=== PATIENT | male | born 1990 | race Asian ===

== ENCOUNTER 2018-03-10 14:09 | Emergency (ER) | payer SELFPAY ==
[2018-03-10 14:23] VITALS: BP 134/79; PULSE 96; RESP 20; TEMP 36.9; O2SAT 98
--- NOTE | 2018-03-10 14:24 | DI.RAD.S_ITS ---
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 COMPARISON: None. FINDINGS: Bones: No fractures or dislocations. No suspicious bony lesions. Visualized ribs appear intact. Soft tissues: No suspicious soft tissue calcifications. IMPRESSION: No fracture. No osseous lesion. If symptoms and/or clinical suspicion for pathology persists, further assessment with repeat radiographs (7-10 days) or advanced imaging (e.g. CT, MRI or bone scan) may be helpful. Dictated by: Nicole Magaña MD, PhD on 03/10/2018 at 14:36 Approved by: Nicole Magaña MD, PhD on 03/10/2018 at 14:37
[2018-03-10] MEDS: KETOROLAC 60 MG/2 ML VIAL IM (15:32)
--- NOTE | 2018-03-10 15:35 | ED.UPPEXIN ---
HPI - Extremity Injury (Upper) <ADELA Worthy - Last Filed: 03/10/18 17:44> General Chief Complaint: Extremity Injury, Upper Stated Complaint: states right shoulder hurts Time Seen by Provider: 03/10/18 15:10 Source: patient Mode of arrival: ambulatory Limitations: no limitations History of Present Illness HPI narrative: Patient is a healthy single 27 year old marijuana smoker who presents after a fall onto his right shoulder at approximately 4:00 a.m. in the morning. He states he landed on his right shoulder with his arms of the year. He denies loss of consciousness, headache neck pain or back pain, stating that he landed entirely on his right shoulder. He states that it is aching pain 09/07. Has not taken anything for it. Worried about a fracture. No previous injuries to his right shoulder. Patient is left handed. Related Data Allergies Allergy/AdvReac Type Severity Reaction Status Date / Time No Known Drug Allergies Allergy Verified 03/10/18 14:25 Review of Systems <ADELA Worthy - Last Filed: 03/10/18 17:44> Review of Systems GENERAL: Denies chills, fatigue, malaise, fever, sweats. HEENT: Denies sinus pain, ear pain, sore throat, difficulty swallowing, dizziness. RESPIRATORY: Denies dyspnea, cough, wheezing, hemoptysis, sputum. CARDIOVASCULAR: Denies chest pain, palpitations, orthopnea, edema, GASTROINTESTINAL: Denies nausea, vomiting, abdominal pain, diarrhea, constipation, melena. : Denies dysuria, frequency, incontinence, hematuria, urinary retention. MUSCULOSKELETAL: See HPI SKIN: Denies rash, skin lesions, or other NEUROLOGIC: Denies weakness, headache, numbness, change in speech, confusion, seizures, incoordination. PSYCHIATRIC: No concerning psychosocial issues. 12 point review of systems is negative except for those stated above Exam <ADELA Worthy - Last Filed: 03/10/18 17:44> Narrative Exam Narrative: GENERAL: This is a well-nourished, well-developed patient, no acute distress HEAD: Atraumatic. Normocephalic. No temporal or scalp tenderness. EYES: Pupils equal round and reactive. Extraocular motions intact. No scleral icterus. No injection or drainage. ENT: Nose without bleeding, purulent drainage or septal hematoma. Throat without erythema, tonsillar hypertrophy or exudate. Uvula midline. Airway patent. NECK: Trachea midline. No JVD or lymphadenopathy. Supple, nontender, no meningeal signs. CARDIOVASCULAR: Regular rate and rhythm without murmurs, gallops, or rubs. RESPIRATORY: Clear to auscultation. Breath sounds equal bilaterally. No wheezes, rales, or rhonchi. GASTROINTESTINAL: Abdomen soft, non-tender, nondistended. No hepato-splenomegaly, or palpable masses. No guarding. EXTREMITIES: Generalized pain to palpation right shoulder. Patient is able to flex, extend adduct and abduct right arm. Positive radial pulses. Negative empty can test. BACK: Nontender without deformity or crepitance. No flank tenderness. NEURO: AOx3. SKIN: No rash or erythema. No erythema ecchymosis last chin abrasion noted right shoulder. Initial Vital Signs Initial Vital Signs: Vital Signs Temperature 98.4 F 03/10/18 14:23 Pulse Rate 96 H 03/10/18 14:23 Respiratory Rate 20 03/10/18 14:23 Blood Pressure 134/79 03/10/18 14:23 Pulse Oximetry 98 03/10/18 14:23 <Vivienne Nicole DO - Last Filed: 03/11/18 11:43> Initial Vital Signs Initial Vital Signs: Vital Signs Temperature 98.4 F 03/10/18 14:23 Pulse Rate 96 H 03/10/18 14:23 Respiratory Rate 20 03/10/18 14:23 Blood Pressure 134/79 03/10/18 14:23 Pulse Oximetry 98 03/10/18 14:23 Course <ADELA Worthy - Last Filed: 03/10/18 17:44> Orders Ordered: Discontinued Medications Ketorolac Tromethamine (Toradol) 60 mg IM NOW ONE Stop: 03/10/18 15:26 Last Admin: 03/10/18 15:32 Dose: 60 mg Vital Signs - 8 hr 03/10/18 14:23 Temperature 98.4 F Pulse Rate 96 H Respiratory Rate 20 Blood Pressure 134/79 Pulse Oximetry 98 <Vivienne Nicole DO - Last Filed: 03/11/18 11:43> Orders Ordered: Discontinued Medications Ketorolac Tromethamine (Toradol) 60 mg IM NOW ONE Stop: 03/10/18 15:26 Last Admin: 03/10/18 15:32 Dose: 60 mg Vital Signs - 8 hr 03/10/18 14:23 Temperature 98.4 F Pulse Rate 96 H Respiratory Rate 20 Blood Pressure 134/79 Pulse Oximetry 98 MDM - Extremity Injury (Upper) <ADELA Worthy - Last Filed: 03/10/18 17:44> Imaging Data shoulder xray: Radiologist's impression: [address] [address] XRay Report Signed Patient: Mannie Teague#: [id number] : 1990Acct:[id number] Age/Sex: 27 / MDate of Service: 03/10/18 Loc: ED Accession Number: [id number] Procedure: XR shoulder RT min 2V Ordering Provider: Love Martinez PROCEDURE: XR SHOULDER RT MIN 2V INDICATIONS: fall from window, 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 COMPARISON: None. FINDINGS: Bones: No fractures or dislocations. No suspicious bony lesions. Visualized ribs appear intact. Soft tissues: No suspicious soft tissue calcifications. IMPRESSION: No fracture. No osseous lesion. If symptoms and/or clinical suspicion for pathology persists, further assessment with repeat radiographs (7-10 days) or advanced imaging (e.g. CT, MRI or bone scan) may be helpful. Dictated by: Nicole Magaña MD, PhD on 03/10/2018 at 14:36 Approved by: Nicole Magaña MD, PhD on 03/10/2018 at 14:37 [facility] Narrative Medical decision making narrative: Patient is a healthy 27-year-old male who presents with a chief complaint of right shoulder pain. He has a negative x-ray and is neurovascularly intact. I encourage rest ice compression elevation as well as [id number] pain medications as needed and able. I urged him to follow up with primary care provider if worsening or no improvement as he may need further imaging physical therapy etc. No questions or concerns upon discharge. Discharge Plan Departure Patient Disposition: Home Clinical Impression: Acute pain of right shoulder Discharge Date/Time: 03/10/18 15:53 Interventions: ED Discharge Assessment Last Done: 03/10/18 15:53 Instructions: How to Use a Sling, How To Perform RICE (Rest, Ice, Compress, Elevate), DI for Shoulder Pain Activity Restrictions/Additional Instructions: Your x-ray came back with no fracture. Please follow-up with the primary care provider for worsening or no improvement. Please use rest ice compression elevation as well as [id number] pain medication as needed and able. Please do not take ibuprofen for 6-8 hours after your Toradol dose. Stand Alone Forms: Work Release Note <Vivienne Nicole DO - Last Filed: 03/11/18 11:43> Cosign ED Attending Cosignature Attestation: I was immediately available in the department for consultation. Documentation has been reviewed. I agree with assessment and plan.
--- NOTE | 2018-03-10 15:42 | ED_ITS ---
HPI - Extremity Injury (Upper) <ADELA Worthy - Last Filed: 03/10/18 17:44> General Chief Complaint: Extremity Injury, Upper Stated Complaint: states right shoulder hurts Time Seen by Provider: 03/10/18 15:10 Source: patient Mode of arrival: ambulatory Limitations: no limitations History of Present Illness HPI narrative: Patient is a healthy single 27 year old marijuana smoker who presents after a fall onto his right shoulder at approximately 4:00 a.m. in the morning. He states he landed on his right shoulder with his arms of the year. He denies loss of consciousness, headache neck pain or back pain, stating that he landed entirely on his right shoulder. He states that it is aching pain . Has not taken anything for it. Worried about a fracture. No previous injuries to his right shoulder. Patient is left handed. Related Data Allergies Allergy/AdvReac Type Severity Reaction Status Date / Time No Known Drug Allergies Allergy Verified 03/10/18 14:25 Review of Systems <ADELA Worthy - Last Filed: 03/10/18 17:44> Review of Systems GENERAL: Denies chills, fatigue, malaise, fever, sweats. HEENT: Denies sinus pain, ear pain, sore throat, difficulty swallowing, dizziness. RESPIRATORY: Denies dyspnea, cough, wheezing, hemoptysis, sputum. CARDIOVASCULAR: Denies chest pain, palpitations, orthopnea, edema, GASTROINTESTINAL: Denies nausea, vomiting, abdominal pain, diarrhea, constipation, melena. : Denies dysuria, frequency, incontinence, hematuria, urinary retention. MUSCULOSKELETAL: See HPI SKIN: Denies rash, skin lesions, or other NEUROLOGIC: Denies weakness, headache, numbness, change in speech, confusion, seizures, incoordination. PSYCHIATRIC: No concerning psychosocial issues. 12 point review of systems is negative except for those stated above Exam <ADELA Worthy - Last Filed: 03/10/18 17:44> Narrative Exam Narrative: GENERAL: This is a well-nourished, well-developed patient, no acute distress HEAD: Atraumatic. Normocephalic. No temporal or scalp tenderness. EYES: Pupils equal round and reactive. Extraocular motions intact. No scleral icterus. No injection or drainage. ENT: Nose without bleeding, purulent drainage or septal hematoma. Throat without erythema, tonsillar hypertrophy or exudate. Uvula midline. Airway patent. NECK: Trachea midline. No JVD or lymphadenopathy. Supple, nontender, no meningeal signs. CARDIOVASCULAR: Regular rate and rhythm without murmurs, gallops, or rubs. RESPIRATORY: Clear to auscultation. Breath sounds equal bilaterally. No wheezes , rales, or rhonchi. GASTROINTESTINAL: Abdomen soft, non-tender, nondistended. No hepato-splenomegaly , or palpable masses. No guarding. EXTREMITIES: Generalized pain to palpation right shoulder. Patient is able to flex, extend adduct and abduct right arm. Positive radial pulses. Negative empty can test. BACK: Nontender without deformity or crepitance. No flank tenderness. NEURO: AOx3. SKIN: No rash or erythema. No erythema ecchymosis last chin abrasion noted right shoulder. Initial Vital Signs Initial Vital Signs: Vital Signs Temperature 98.4 F 03/10/18 14:23 Pulse Rate 96 H 03/10/18 14:23 Respiratory Rate 20 03/10/18 14:23 Blood Pressure 134/79 03/10/18 14:23 Pulse Oximetry 98 03/10/18 14:23 <Vivienne Nicole DO - Last Filed: 03/11/18 11:43> Initial Vital Signs Initial Vital Signs: Vital Signs Temperature 98.4 F 03/10/18 14:23 Pulse Rate 96 H 03/10/18 14:23 Respiratory Rate 20 03/10/18 14:23 Blood Pressure 134/79 03/10/18 14:23 Pulse Oximetry 98 03/10/18 14:23 Course <ADELA Worthy - Last Filed: 03/10/18 17:44> Orders Ordered: Discontinued Medications Ketorolac Tromethamine (Toradol) 60 mg IM NOW ONE Stop: 03/10/18 15:26 Last Admin: 03/10/18 15:32 Dose: 60 mg Vital Signs - 8 hr 03/10/18 14:23 Temperature 98.4 F Pulse Rate 96 H Respiratory Rate 20 Blood Pressure 134/79 Pulse Oximetry 98 <Vivienne Nicole DO - Last Filed: 03/11/18 11:43> Orders Ordered: Discontinued Medications Ketorolac Tromethamine (Toradol) 60 mg IM NOW ONE Stop: 03/10/18 15:26 Last Admin: 03/10/18 15:32 Dose: 60 mg Vital Signs - 8 hr 03/10/18 14:23 Temperature 98.4 F Pulse Rate 96 H Respiratory Rate 20 Blood Pressure 134/79 Pulse Oximetry 98 MDM - Extremity Injury (Upper) <ADELA Worthy - Last Filed: 03/10/18 17:44> Imaging Data shoulder xray: Radiologist's impression: [address] [address] XRay Report Signed Patient: Mannie Teague#: [id number] : 1990Acct:[id number] Age/Sex: 27 / MDate of Service: 03/10/18 Loc: ED Accession Number: [id number] Procedure: XR shoulder RT min 2V Ordering Provider: Love Martinez PROCEDURE: XR SHOULDER RT MIN 2V INDICATIONS: fall from window, 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 COMPARISON: None. FINDINGS: Bones: No fractures or dislocations. No suspicious bony lesions. Visualized ribs appear intact. Soft tissues: No suspicious soft tissue calcifications. IMPRESSION: No fracture. No osseous lesion. If symptoms and/or clinical suspicion for pathology persists, further assessment with repeat radiographs (7-10 days) or advanced imaging (e.g. CT, MRI or bone scan) may be helpful. Dictated by: Nicole Magaña MD, PhD on 03/10/2018 at 14:36 Approved by: Nicole Magaña MD, PhD on 03/10/2018 at 14:37 [facility] Narrative Medical decision making narrative: Patient is a healthy 27-year-old male who presents with a chief complaint of right shoulder pain. He has a negative x- ray and is neurovascularly intact. I encourage rest ice compression elevation as well as [id number] pain medications as needed and able. I urged him to follow up with primary care provider if worsening or no improvement as he may need further imaging physical therapy etc. No questions or concerns upon discharge. Discharge Plan Departure Patient Disposition: Home Clinical Impression: Acute pain of right shoulder Discharge Date/Time: 03/10/18 15:53 Interventions: ED Discharge Assessment Last Done: 03/10/18 15:53 Instructions: How to Use a Sling, How To Perform RICE (Rest, Ice, Compress, Elevate), DI for Shoulder Pain Activity Restrictions/Additional Instructions: Your x-ray came back with no fracture. Please follow-up with the primary care provider for worsening or no improvement. Please use rest ice compression elevation as well as [id number] pain medication as needed and able. Please do not take ibuprofen for 6-8 hours after your Toradol dose. Stand Alone Forms: Work Release Note <Vivienne Nicole DO - Last Filed: 03/11/18 11:43> Cosign ED Attending Cosignature Attestation: I was immediately available in the department for consultation. Documentation has been reviewed. I agree with assessment and plan.
== END 2018-03-10 15:53 | disposition home or self-care (01) ==
PROVIDERS: Emergency Provider Nurse Practitioner Family
DX: M25.511 Pain in right shoulder (principal); W18.30XA Fall on same level, unspecified, initial encounter
CPT/HCPCS: 73030; 96372; 99282; 99283; J1885

== ENCOUNTER 2019-03-27 20:25 | Emergency (ER) | payer OTHER, SELFPAY ==
[2019-03-27 20:33] VITALS: BP 169/97; PULSE 87; RESP 14; TEMP 36.6; O2SAT 97; BMI 28.5
--- NOTE | 2019-03-27 22:18 | ED.WOUNDLAC ---
HPI - Wound/Laceration General Chief Complaint: Wound/Laceration Stated Complaint: laceration to tip of middle finger left hand Time Seen by Provider: 03/27/19 20:25 Source: patient Mode of arrival: Ambulatory Limitations: no limitations History of Present Illness HPI narrative: 28-year-old male nonsmoker with noncontributory medical history presents with a few of his friends and a chief complaint of an accidental laceration to the tip of his left middle finger while cooking just prior to arrival. He was using a sharp, new knife and states his tetanus is current. He denies other injury is otherwise well and free of complaint. It bled a bit initially but with significant pressure it had stopped prior to his arrival. Onset (ago): minute(s) Extremity Location: Left: hand Place: home Patient tetanus UTD: Yes Context: accidental Associated symptoms: none Treatments prior to arrival: bandage Related Data Allergies Allergy/AdvReac Type Severity Reaction Status Date / Time No Known Drug Allergies Allergy Verified 06/18/18 08:43 Review of Systems Constitutional Constitutional: Denies chills, Denies fatigue, Denies fever(s), Denies frequent falls, Denies lethargy and Denies weakness Eyes Eyes: Denies change in vision, Denies eye discharge, Denies irritation and Denies loss of vision ENT Ears, Nose, Mouth, and Throat: Denies change in voice, Denies dizziness, Denies neck pain, Denies sore throat and Denies throat swelling Cardiovascular Cardiovascular: Denies chest pain, Denies irregular heart rhythm, Denies lightheadedness, Denies palpitations, Denies dyspnea, Denies dyspnea on exertion and Denies orthopnea Respiratory Respiratory: Denies cough, Denies dyspnea, Denies dyspnea on exertion and Denies wheezing Gastrointestinal Gastrointestinal: Denies abdominal pain, Denies change in bowel habits, Denies diarrhea, Denies nausea and Denies vomiting Genitourinary Genitourinary: Denies hematuria, Denies flank pain, Denies urinary incontinence and Denies urinary urgency Musculoskeletal Musculoskeletal: Denies back pain, Denies muscle weakness, Denies neck pain, Denies numbness and Denies tingling Integumentary/Breasts Skin/Breast: Denies pruritus, Denies erythema, Denies rash and Reports wounds Neurologic Neurologic: Denies behavioral changes, Denies confusion, Denies dizziness, Denies frequent falls, Denies loss of vision, Denies numbness, Denies tingling and Denies weakness Psychiatric Psychiatric: Denies anxiety, Denies behavioral changes, Denies confusion, Denies depression, Denies homicidal ideation and Denies suicidal ideation Endocrine Endocrine: Denies fatigue, Denies flushing and Denies palpitations Hematologic/Lymphatic Hematologic/Lymphatic: Denies easy bruising Allergic/Immunologic Allergic/Immunologic: Denies urticaria, Denies throat swelling and Denies wheezing Patient History Social History Smoking Status: Current every day smoker alcohol intake: current substance use type: marijuana Smoking Status: Current every day smoker tobacco type: cigarettes and smokeless tobacco alcohol intake frequency: a few times a week Alcohol type: beer Substance Use Type: marijuana Exam Narrative Exam Narrative: GEN: AOx3 and in mild distress EYES: Pupils are equal, round, and reactive to light and accommodation. Extraoccular muscles are intact bilaterally. There is no subconjunctival hemorrhage or exudate. CHEST: Lungs are clear to auscultation bilaterally and free of wheezes, rales, or rhonchi. Heart rate is regular rhythm, there are no murmurs, clicks, rubs, or gallops. There is no chest wall tenderness. ABD: Abdomen is soft and nontender. There is no guarding or rebound. Bowel sounds are normal in all 4 quadrants. There is no mass or organomegaly. EXT: 0.5 cm laceration on the tip of left middle finger that involves a small portion of the nail. There is no tissue loss, there is no involvement of the nail fold. There is no active bleeding Full painless ROM of all extremities with no loss of sensation or strength. SKIN: Warm, pink, and dry. No erythema or rash Initial Vital Signs Initial Vital Signs: Vital Signs Temperature 97.8 F 03/27/19 20:33 Pulse Rate 87 03/27/19 20:33 Respiratory Rate 14 03/27/19 20:33 Blood Pressure 169/97 H 03/27/19 20:33 Pulse Oximetry 97 03/27/19 20:33 Procedures Laceration Repair Laceration 1: Site: hand Size (cm): 0.5 Description: linear Depth: simple, single layer Pre-repair: irrigated extensively Skin layer closed with: dermabond Course Vital Signs Vital signs: Vital Signs - 8 hr 03/27/19 20:33 Temperature 97.8 F Pulse Rate 87 Respiratory Rate 14 Blood Pressure 169/97 H Pulse Oximetry 97 Discharge Plan Departure Patient Disposition: Home Clinical Impression: Laceration Discharge Date/Time: 03/27/19 20:58 Instructions: DI for Laceration Repair Activity Restrictions/Additional Instructions: *You have been diagnosed with [ fingertip laceration, repaired with dermabond ] *What to do: *Take medications as directed: tylenol or motrin for pain *Follow up with your primary care provider in 2-3 days, call for an appointment. Let them know you were seen in the Emergency Department and that we ask that you be seen in follow up *Return to ER if you should have any new, worsening or concerning symptoms
== END 2019-03-27 20:58 | disposition home or self-care (01) ==
PROVIDERS: Emergency Provider Emergency Medicine
DX: S61.213A Laceration without foreign body of left middle finger without damage to nail, initial encounter (principal); W26.0XXA Contact with knife, initial encounter
CPT/HCPCS: 99281; 99282